=== PATIENT | male | born 1980 | race Two or more races ===

== ENCOUNTER 2018-04-27 02:30 | Inpatient (IN) | payer MEDICAID ==
[2018-04-27] MEDS ORDERED: Sodium Chloride 0.9% 1,000 ML IV ONE (03:00)
--- NOTE | 2018-04-27 03:06 | ED Physician Chart ---
ED Chief Complaint/HPI - Patient Information Date Seen:: 04/27/18 Time Seen:: 02:38 Chief Complaint:: weakness History of Present Illness:: THIS IS A 38 YO MALE BIB HIS FAMILY WITH CHILLS, VOMITING AND DRINKING ALCOHOL. THE PATIENT'S FAMILY IS CONCERNED WITH HIS USING THC AND DRINKING TOO MUCH BEER. Allergies:: Allergies Allergy/AdvReac Type Severity Reaction Status Date / Time No Known Allergies Allergy Verified 04/27/18 02:41 Vitals:: Vital Signs - 8 hr 04/27/18 02:30 Temp 98.5 F HR 89 RR 20 BP 133/96 O2 Sat % 96 Historian:: Patient, Family Member Review:: Nurse's Note Reviewed ED Review of Systems - Review of Systems General/Constitutional: No fever, Chills, No weight loss, Weakness, No diaphoresis, No edema, No loss of appetite Skin: No skin lesions, No rash, No bruising Head: No headache, No light-headedness Eyes: No loss of vision, No pain, No diplopia ENT: No earache, No nasal drainage, No sore throat, No tinnitus Neck: No neck pain, No swelling, No thyromegaly, No stiffness, No mass noted Cardio Vascular: No chest pain, No palpitations, No PND, No orthopnea, No edema Pulmonary: No SOB, No cough, No sputum, No wheezing GI: Nausea, Vomiting, No diarrhea, No pain, No melena, No hematochezia, No constipation, No hematemesis G/U: No dysuria, No frequency, No hematuria Musculoskeletal: No bone or joint pain, No back pain, No muscle pain Endocrine: No polyuria, No polydipsia Psychiatric: No prior psych history, No depression, No anxiety, No suicidal ideation Hematopoietic: No bruising, No lymphadenopathy Allergic/Immuno: No urticaria, No angioedema Neurological: No syncope, No focal symptoms, No weakness, No paresthesia, No headache, No seizure, No dizziness, No confusion, No vertigo ED Past Medical History - Past Medical History Obtainable: Yes Past Medical History: No significant medical hx Family History: None Social History: Smoker, Alcohol, Illicit Drug Use, Employed Surgical History: Hernia Psychiatricy History: None Medication: Reviewed Family Medical History - Family Member Father History Unknown: Yes Ethnicity: Living Status: Still Living ED Physical Exam - Physical Examination General/Constitutional: Awake, Well-developed, well-nourished, Alert, No distress, GCS 15, Non-toxic appearing, Ambulatory Other Gen/Cons comments:: PATIENT IS DIAPHORETIC AND MILDLY WEAK Head: Atraumatic Eyes: Lids, conjuctiva normal, PERRL, EOMI Skin: Nl inspection, No rash, No skin lesions, No ecchymosis, Well hydrated, No lymphadenopathy ENMT: External ears, nose nl, Nasal exam nl, Lips, teeth, gums nl Neck: Nontender, Full ROM w/o pain, No JVD, No nuchal rigidity, No bruit, No mass, No stridor Respiratory: Nl effort/Exclusion, Clear to Auscultation, No Wheeze/Rhonchi/Rales Cardio Vascular: RRR, No murmur, gallop, rubs, NL S1 S2 GI: No tenderness/rebounding/guarding, No organomegaly, No hernia, Normal BS's, Nondistended, No mass/bruits, No McBurney tenderness : No CVA tenderness Extremities: No tenderness or effusion, Full ROM, normal strength in all extremities, No edema, Normal digits & nails Neuro/Psych: Alert/oriented, DTR's symmetric, Normal sensory exam, Normal motor strength, Judgement/insight normal, Mood normal, Normal gait, No focal deficits Misc: Normal back, No paraspinal tenderness ED Labs/Radiology/EKG Results - Lab Results Results: Abnormal Lab Results 04/27/18 04/27/18 04/27/18 03:00 03:00 03:00 WBC 12.8 H RBC 5.72 H Hgb 17.0 Hct 50.5 MCV 88.4 MCH 29.8 MCHC Differential 33.7 RDW 12.6 Plt Count 312 MPV 8.0 Neutrophils % 75.8 Lymphocytes % 19.7 L Monocytes % 3.4 Eosinophils % 0.8 Basophils % 0.3 PT Cancelled INR Cancelled PTT (Actin FS) Cancelled Sodium 139 Potassium 3.3 L Chloride 101 Carbon Dioxide 24.4 Anion Gap 16.9 H BUN 14 Creatinine 0.8 Est GFR ( Amer) > 60.0 Est GFR (Non-Af Amer) > 60.0 BUN/Creatinine Ratio 17.5 Glucose 99 Calcium 10.2 Total Bilirubin 1.8 H AST 58 H ALT 98 H Alkaline Phosphatase 75 Troponin I Total Protein 9.0 H Albumin 5.3 Globulin 3.7 Albumin/Globulin Ratio 1.4 Amylase 46 Lipase 21 TSH Urine Source Urine Color Urine Clarity Urine pH Ur Specific [place] Urine Protein Urine Glucose (UA) Urine Ketones Urine Blood Urine Nitrate Urine Bilirubin Urine Urobilinogen Ur Leukocyte Esterase Urine Opiates Screen Urine Methadone Screen Ur Barbiturates Screen Ur Tricyclics Screen Ur Phencyclidine Scrn Amphetamines Screen U Methamphetamines Scrn U Benzodiazepines Scrn U Cocaine Metab Screen U Cannabinoids Screen Ethyl Alcohol 157 H 04/27/18 04/27/18 04/27/18 03:00 03:00 04:30 WBC RBC Hgb Hct MCV MCH MCHC Differential RDW Plt Count MPV Neutrophils % Lymphocytes % Monocytes % Eosinophils % Basophils % PT INR PTT (Actin FS) Sodium Potassium Chloride Carbon Dioxide Anion Gap BUN Creatinine Est GFR ( Amer) Est GFR (Non-Af Amer) BUN/Creatinine Ratio Glucose Calcium Total Bilirubin AST ALT Alkaline Phosphatase Troponin I 0.01 Total Protein Albumin Globulin Albumin/Globulin Ratio Amylase Lipase TSH 2.13 Urine Source CLEAN C Urine Color YELLOW Urine Clarity CLEAR Urine pH 8.0 Ur Specific [place] 1.020 Urine Protein NEGATIVE Urine Glucose (UA) NEGATIVE Urine Ketones 40 H Urine Blood NEGATIVE Urine Nitrate NEGATIVE Urine Bilirubin NEGATIVE Urine Urobilinogen 0.2 Ur Leukocyte Esterase NEGATIVE Urine Opiates Screen Urine Methadone Screen Ur Barbiturates Screen Ur Tricyclics Screen Ur Phencyclidine Scrn Amphetamines Screen U Methamphetamines Scrn U Benzodiazepines Scrn U Cocaine Metab Screen U Cannabinoids Screen Ethyl Alcohol 04/27/18 04:30 WBC RBC Hgb Hct MCV MCH MCHC Differential RDW Plt Count MPV Neutrophils % Lymphocytes % Monocytes % Eosinophils % Basophils % PT INR PTT (Actin FS) Sodium Potassium Chloride Carbon Dioxide Anion Gap BUN Creatinine Est GFR ( Amer) Est GFR (Non-Af Amer) BUN/Creatinine Ratio Glucose Calcium Total Bilirubin AST ALT Alkaline Phosphatase Troponin I Total Protein Albumin Globulin Albumin/Globulin Ratio Amylase Lipase TSH Urine Source Urine Color Urine Clarity Urine pH Ur Specific [place] Urine Protein Urine Glucose (UA) Urine Ketones Urine Blood Urine Nitrate Urine Bilirubin Urine Urobilinogen Ur Leukocyte Esterase Urine Opiates Screen NEGATIVE Urine Methadone Screen NEGATIVE Ur Barbiturates Screen NEGATIVE Ur Tricyclics Screen NEGATIVE Ur Phencyclidine Scrn NEGATIVE Amphetamines Screen NEGATIVE U Methamphetamines Scrn NEGATIVE U Benzodiazepines Scrn NEGATIVE U Cocaine Metab Screen NEGATIVE U Cannabinoids Screen POSITIVE H Ethyl Alcohol - EKG Interpretations EKG Time:: 03:26 Rate & Rhythm: rate= 59, sinus [place]: right axis Intervals: no ectopy ED Assessment - Assessment General Assessment: VOMITING FROM THC USE ED Septic Shock - . 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 - Patient Disposition Discharge/Transfer:: Home Condition at Disposition:: Improved
[2018-04-27 03:38] LABS: % BASOPHILS 0.3 % (0.0-2.0); % EOSINOPHILS 0.8 % (0.0-5.0); % LYMPHOCYTES 19.7 % (20.0-50.0); % MONOCYTES 3.4 % (2.0-10.0); % NEUTROPHILS 75.8 % (40.0-80.0); EOSINOPHILE ABSOLUTE 0.1 Th/cmm (0.1-0.4); HEMATOCRIT 50.5 % (41.0-60); LYMPHOCYTE ABSOLUTE 2.5 Th/cmm (1.5-3.0); MEAN CELL VOLUME 88.4 fl (80-99); MEAN CORPUSCULAR HEMOGLOBIN 29.8 pg (26.0-30.0); MEAN CORPUSCULAR HGB CONC 33.7 pg (28.0-36.0); MONOCYTE ABSOLUTE 0.4 Th/cmm (0.3-1.0); NEUTROPHILE ABSOLUTE 9.8 Th/cmm (1.8-8.0); PLATELET COUNT 312 Th/cmm (150-400); RED BLOOD COUNT 5.72 Mil/cmm (4.30-5.70); RED CELL DISTRIBUTION WIDTH 12.6 % (11.5-20.0); WHITE BLOOD COUNT 12.8 Th/cmm (4.8-10.8)
[2018-04-27] MEDS ORDERED: Lactated Ringer 1,000 ML IV ONE ×2 (03:42→07:39)
[2018-04-27 03:57] LABS: ALB/GLOB RATIO 1.4 (1.0-1.8); ALBUMIN 5.3 gm/dL (4.2-5.5); ALKALINE PHOSPHATASE 75 U/L (34-104); AMYLASE SERUM 46 U/L (29-103); ANION GAP 16.9 (7.0-16.0); BILIRUBIN,TOTAL 1.8 mg/dL (0.3-1.0); BUN - UREA NITROGEN 14 mg/dL (7-25); CALCIUM SERUM 10.2 mg/dL (8.6-10.3); CARBON DIOXIDE 24.4 mEq/L (21.0-31.0); CHLORIDE 101 mEq/L (98-107); CREATININE - SERUM 0.8 mg/dL (0.7-1.3); GFR AFRICAN-AMERICAN > 60.0 ml/min (>90); GFR NON AFRICAN-AMERICAN > 60.0 ml/min; GLUCOSE 99 mg/dL (70-105); LIPASE 21 U/L (11-82); POTASSIUM SERUM 3.3 mEq/L (3.5-5.1); SGOT 58 U/L (13-39); SODIUM SERUM 139 mEq/L (136-145)
[2018-04-27] MEDS ORDERED: Potassium Chloride Elixir 20 mEq /15 mL UDC PO ONE (04:09)
[2018-04-27] MEDS ORDERED: Potassium Chloride Elixir 20 mEq /15 mL UDC ONE ×2 (04:11→04:12)
[2018-04-27 04:41] LABS: URINE SOURCE CLEAN C
[2018-04-27 04:43] LABS: URINE BILIRUBIN NEGATIVE (NEGATIVE); URINE BLOOD NEGATIVE (NEGATIVE); URINE GLUCOSE (UA) NEGATIVE (NEGATIVE); URINE KETONE 40 mg/dL (NEGATIVE); URINE LEUKOCYTE ESTERASE NEGATIVE (NEGATIVE); URINE NITRATE NEGATIVE (NEGATIVE); URINE PROTEIN NEGATIVE (NEGATIVE); URINE UROBILINOGEN 0.2 E.U./dL (0.2 - 1.0)
[2018-04-27 04:45] LABS: URINE CLARITY CLEAR (CLEAR); URINE COLOR YELLOW; URINE MICROSCOPIC INDICATED? NO
[2018-04-27 04:51] LABS: AMPHETAMINE URINE NEGATIVE (NEGATIVE); BARBITURATES URINE NEGATIVE (NEGATIVE); BENZODIAZEPINES QUAL URINE NEGATIVE (NEGATIVE); CANNABINOID THC POSITIVE (NEGATIVE); COCAINE METABOLITE QUAL URINE NEGATIVE (NEGATIVE); METHADONE URINE NEGATIVE (NEGATIVE); METHAMPHETAMINES QUAL URINE NEGATIVE (NEGATIVE); OPIATES (MORPHINE) QUAL. URINE NEGATIVE (NEGATIVE); PHENCYCLIDINE (PCP) URINE NEGATIVE (NEGATIVE); TRICYCLICS (TCA) QUAL. URINE NEGATIVE (NEGATIVE)
[2018-04-27] MEDS ORDERED: 0.9% NS w/40 mEq KCL 1,000 ML IV ONE ×2 (05:02→05:05)
[2018-04-27 05:43] LABS: SGPT/ALT 98 U/L (7-52)
[2018-04-27] MEDS ORDERED: IOHEXOL 300mgI/mL 100 ML VIAL ONE (06:56)
[2018-04-27] MEDS ORDERED: metroNIDAZOLE 500mg/NS 100mL 500 MG/100 ML BAG IV ONE ×2 (07:41→08:04)
--- NOTE | 2018-04-27 08:30 | Diagnostic Imaging Report ---
Exam: CT examination of the pelvis. HISTORY: Vomiting. Total DLP equals 137 CTDI equals 8.2 Findings: Multiple contiguous thin section of the abdomen pelvis obtained after plane with coronal sagittal reconstruction technique. Examination was performed with administration of intravenous contrast material, no prior studies available comparison. The study demonstrates normal aeration of lung parenchyma the bases The liver and spleen intact there is evidence for hepatomegaly. Adrenal glands are normal. The kidneys concentrate and excrete contrast material normal fashion. The pancreas is intact. The gallbladder demonstrates a small collection of pericholecystic fluid collection this might represent cystitis ultrasound examination of the gallbladder is recommended. The study is degraded by motion artifacts. No free fluid is noted. There is no evidence of diverticular disease of diverticulitis. The urinary bladder is intact. The visualized appendix is normal. Bony structures demonstrate no evidence for lytic or blastic changes. IMPRESSION: Hepatomegaly. Distended gallbladder with a question of pericholecystic fluid collection. Cholecystitis cannot be excluded ultrasound summation gallbladder is recommended.
[2018-04-27] MEDS ORDERED: Piperacillin Sodium/Tazobact 3.375 gm Vial IV ONE (10:05)
--- NOTE | 2018-04-27 10:45 | Diagnostic Imaging Report ---
EXAM: Right shoulder joint HISTORY: Pain COMPARISON: None FINDINGS: Multiple views of right shoulder joint reviewed. The study demonstrates no evidence of fracture or dislocation. There is no evidence of subluxation. The acromion clinically joint is intact. The head of right humerus is well within the glenoid fossa. IMPRESSION: Normal examination of the right shoulder joint.
[2018-04-27] MEDS ORDERED: D5LR 1,000 ML IV ONE (12:52)
[2018-04-27] MEDS ORDERED: Morphine Sulfate 2 mg/mL 1mL Syr IV PRN (14:52)
[2018-04-27] MEDS: D5-0.45NS 1,000 ML IV SCH (15:48)
--- NOTE | 2018-04-27 21:03 | Consultation ---
DATE OF CONSULTATION: 04/27/2018 REASON FOR CONSULTATION: Abdominal pain, nausea, vomiting. HISTORY OF PRESENT ILLNESS: This consult was obtained through the courtesy of Dr. Jackson for this 38-year-old with significant past medical history presenting with abdominal pain, nausea, vomiting that started last night after drinking. The patient came to the hospital with abnormal liver enzymes. The patient was admitted. GI consult was called in for further evaluation. Currently, the patient feels a little bit better. PAST MEDICAL HISTORY: Negative. PAST SURGICAL HISTORY: Hernia repair. SOCIAL HISTORY: He smokes weeds. Drinks beer 6-7. At the time yesterday, he had may be 8 or more. IV drug abuser. FAMILY HISTORY: Noncontributory. ALLERGIES: No known drug allergy. REVIEW OF SYSTEMS: No weight loss. He is weak. He had abdominal pain, nausea, vomiting. No diarrhea or constipation. PHYSICAL EXAMINATION: GENERAL: The patient is awake, oriented to self, place, and time even though sleepy. VITAL SIGNS: Blood pressure is 98/50, heart rate 68, respiratory rate 20, and temperature 99.6. HEAD AND NECK: Pupils reactive to light and accommodation. Extraocular muscles intact. Sclerae are anicteric. Conjunctivae not pale. Oral cavity, no lesion. NECK: Supple. CHEST: Good air entry. LUNGS: Clear to auscultation. CARDIOVASCULAR SYSTEM: Regular rate and rhythm. No murmur or gallop. ABDOMEN: Soft, positive bowel sound. Abdomen is not tender. EXTREMITIES: Lower extremities, no edema. CENTRAL NERVOUS SYSTEM: Nonfocal. LABORATORY DATA: White count 12.8. Rest of CBC unremarkable. Chemistry showed bilirubin of 1.8, AST and ALT are 58 and 98. Ultrasound showed some thickening of the gallbladder wall. IMPRESSION: A 38-year-old with history of alcohol and substance abuse, presenting with abdominal pain, nausea, vomiting, abnormal liver enzymes. ASSESSMENT AND PLAN: Abdominal pain, nausea, vomiting, normal liver enzymes. This picture is consistent with alcoholic gastritis, less likely to be cholecystitis, even though it is considered because of some pericholecystic fluid. RECOMMENDATIONS: 1. Clear liquid diet. 2. PPI. 3. Recheck labs in the morning. 4. If improving continue current management and if not can do an endoscopy. 5. HIDA scan was already ordered, so we will await results. Thank you, Dr. Jackson for allowing me to participate in the care of the patient. If you have any further questions, please let me know. JOB# [id number]
[2018-04-28 06:45] LABS: % EOSINOPHILS 1.5 % (0.0-5.0); % LYMPHOCYTES 41.5 % (20.0-50.0); % MONOCYTES 8.1 % (2.0-10.0); % NEUTROPHILS 48.9 % (40.0-80.0); EOSINOPHILE ABSOLUTE 0.1 Th/cmm (0.1-0.4); HEMATOCRIT 40.8 % (41.0-60); HEMOGLOBIN 13.8 gm/dL (12-16); LYMPHOCYTE ABSOLUTE 2.7 Th/cmm (1.5-3.0); MEAN CELL VOLUME 88.9 fl (80-99); MEAN CORPUSCULAR HEMOGLOBIN 30.1 pg (26.0-30.0); MEAN CORPUSCULAR HGB CONC 33.9 pg (28.0-36.0); MEAN PLATELET VOLUME 7.9 fl; MONOCYTE ABSOLUTE 0.5 Th/cmm (0.3-1.0); NEUTROPHILE ABSOLUTE 3.3 Th/cmm (1.8-8.0); PLATELET COUNT 235 Th/cmm (150-400); RED BLOOD COUNT 4.59 Mil/cmm (4.30-5.70); RED CELL DISTRIBUTION WIDTH 12.7 % (11.5-20.0); WHITE BLOOD COUNT 6.6 Th/cmm (4.8-10.8)
[2018-04-28 07:05] LABS: ALB/GLOB RATIO 1.6 (1.0-1.8); ALBUMIN 3.8 gm/dL (4.2-5.5); ALKALINE PHOSPHATASE 51 U/L (34-104); ANION GAP 10.1 (7.0-16.0); BILIRUBIN,TOTAL 2.3 mg/dL (0.3-1.0); BUN - UREA NITROGEN 13 mg/dL (7-25); CALCIUM SERUM 8.9 mg/dL (8.6-10.3); CARBON DIOXIDE 26.6 mEq/L (21.0-31.0); CHLORIDE 106 mEq/L (98-107); CREATININE - SERUM 0.8 mg/dL (0.7-1.3); GFR AFRICAN-AMERICAN > 60.0 ml/min (>90); GFR NON AFRICAN-AMERICAN > 60.0 ml/min; GLUCOSE 102 mg/dL (70-105); LIPASE 54 U/L (11-82); POTASSIUM SERUM 3.7 mEq/L (3.5-5.1); SGOT 42 U/L (13-39); SGPT/ALT 67 U/L (7-52); SODIUM SERUM 139 mEq/L (136-145); TOTAL PROTEIN,SERUM 6.2 gm/dL (6.0-8.3)
--- NOTE | 2018-04-28 08:29 | History and Physical ---
History of Present Illness - HPI Chief Complaint: abdominal Pain HPI: 38 y/o male who presents to [facility] for abdominal pain, nausea, vomiting. Patient states that he was watching the [employer] fight prior to admission and drank 6 beers and ate a fatty meal. When he woke up the next morning he experience intense abdominal pain, nausea and vomiting. Patient subsequently had a US gallbladder in the ER which revealed fluid around the gallbladder. Patient was subsequently admitted for possible cholecystitis. Initial labwork revealed WBC 12.8 H/H 17.0/50.5 plat 312 Na 139 K 3.3 Bun/Cr 14/0.8 glu 99 ETOH 157 AST 58 ALT 98 ALK 75 UA neg Patient was subsequently admitted for further evaluation and treatment. Vital Signs: Last Vital Signs Temp 98.5 F 04/28/18 04:00 Pulse 72 04/28/18 04:00 Resp 20 04/28/18 04:00 BP 103/67 04/28/18 04:00 Pulse Ox 98 04/28/18 04:00 Past Medical History Cardiovascular: Report: No Pertinent Hx Pulmonary: Report: No Pertinent Hx KAYAKING INSTRUCTOR: Report: No Pertinent Hx GI: Report: No Pertinent Hx Psych: Report: No Pertinent Hx Musculoskeletal: Report: No Pertinent Hx Rheumatologic: Report: No pertinent Hx Infectious Disease: Report: No Pertinent Hx Renal/: Report: No Pertinent Hx Endocrine: Report: No Pertinent Hx Dermatology: Report: No Pertinent Hx - Past Surgical History Past Surgical History: No pertinent Hx Family Medical History - Family Member Father History Unknown: Yes Ethnicity: Living Status: Still Living Social History Smoke: 1 pack per day Alcohol: Social Drugs: Marijuana Lives: With Family Domestic Violence: Negative - Medications Home Medications: Home Medication Medication Instructions Recorded Type NK [No Home Meds] 04/27/18 History - Allergies Allergies/Adverse Reactions: Allergies Allergy/AdvReac Type Severity Reaction Status Date / Time No Known Allergies Allergy Verified 04/27/18 02:41 Review of Systems - Review of Systems Constitutional: Report: No Significant Eyes: Report: No Significant ENT: Report: No Significant, Nose Pain Respiratory: Report: No Significant Cardiovascular: Report: No Significant Gastrointestinal: Report: Nausea, Vomiting, Abdominal Pain Genitourinary: Report: No Significant Musculoskeletal: Report: No Significant Skin: Report: No Significant Neurological: Report: No Significant Physical Exam - Physical Exam HEENT: Report: Ears Nose Throat within normal limits, Pharnyx within normal limits Neck: Report: Within normal limits Cardiovascular Systems: Report: +s1/s2 noted, Regular, Rate and Rhythm Respiratory: Report: Breath Sounds are within normal limits, Clear to Auscultation of lung dejesus Abdomen: Report: Non-tender to palpation Back: Report: Inspection of back is within normal limits. Extremities: Report: Non-tender to palpation. Skin: Report: Color of skin is within normal limits Neuro/Psych: Report: Mood affect is within normal limits, A+Ox3 - Lab Results All Lab Results last 24 hours: Laboratory Results - last 24 hr 04/27/18 04/28/18 04/28/18 07:49 05:25 05:25 WBC 6.6 RBC 4.59 Hgb 13.8 Hct 40.8 L MCV 88.9 MCH 30.1 H MCHC Differential 33.9 RDW 12.7 Plt Count 235 MPV 7.9 Neutrophils % 48.9 Lymphocytes % 41.5 Monocytes % 8.1 Eosinophils % 1.5 Basophils % 0.0 Sodium 139 Potassium 3.7 Chloride 106 Carbon Dioxide 26.6 Anion Gap 10.1 BUN 13 Creatinine 0.8 Est GFR ( Amer) > 60.0 Est GFR (Non-Af Amer) > 60.0 BUN/Creatinine Ratio 16.3 Glucose 102 Calcium 8.9 Total Bilirubin 2.3 H AST 42 H ALT 67 H Alkaline Phosphatase 51 Total Protein 6.2 Albumin 3.8 L Globulin 2.4 Albumin/Globulin Ratio 1.6 Lipase 54 Stool Occult Blood NEGATIVE - Assessment Assessment: cyclic vomiting secondary to THC possible cholecystitis elevated LFTs hypokalemia alcohol intoxication - Plan Plan: Patient was subsequently admitted to med surg for further evaluation and treatment. will ordr general surgical consult GI consult repeat cbc, cmp continue IV fluids
--- NOTE | 2018-04-28 09:09 | General Progress Note ---
Subjective - Review of Systems Service Date: 04/28/18 Events since last encounter: chart reviewed CT noted, US no GB stones HIDA ordered Objective - Results Result Diagrams: 04/28/18 05:25 04/28/18 05:25 Recent Labs: Laboratory Last Values WBC 6.6 Th/cmm (4.8-10.8) 04/28/18 05:25 RBC 4.59 Mil/cmm (4.30-5.70) 04/28/18 05:25 Hgb 13.8 gm/dL (12-16) 04/28/18 05:25 Hct 40.8 % (41.0-60) L 04/28/18 05:25 MCV 88.9 fl (80-99) 04/28/18 05:25 MCH 30.1 pg (26.0-30.0) H 04/28/18 05:25 MCHC Differential 33.9 pg (28.0-36.0) 04/28/18 05:25 RDW 12.7 % (11.5-20.0) 04/28/18 05:25 Plt Count 235 Th/cmm (150-400) 04/28/18 05:25 MPV 7.9 fl 04/28/18 05:25 Neutrophils % 48.9 % (40.0-80.0) 04/28/18 05:25 Lymphocytes % 41.5 % (20.0-50.0) 04/28/18 05:25 Monocytes % 8.1 % (2.0-10.0) 04/28/18 05:25 Eosinophils % 1.5 % (0.0-5.0) 04/28/18 05:25 Basophils % 0.0 % (0.0-2.0) 04/28/18 05:25 PT Cancelled 04/27/18 03:00 INR Cancelled 04/27/18 03:00 PTT (Actin FS) Cancelled 04/27/18 03:00 Sodium 139 mEq/L (136-145) 04/28/18 05:25 Potassium 3.7 mEq/L (3.5-5.1) 04/28/18 05:25 Chloride 106 mEq/L (98-107) 04/28/18 05:25 Carbon Dioxide 26.6 mEq/L (21.0-31.0) 04/28/18 05:25 Anion Gap 10.1 (7.0-16.0) 04/28/18 05:25 BUN 13 mg/dL (7-25) 04/28/18 05:25 Creatinine 0.8 mg/dL (0.7-1.3) 04/28/18 05:25 Est GFR ( Amer) > 60.0 ml/min (>90) 04/28/18 05:25 Est GFR (Non-Af Amer) > 60.0 ml/min 04/28/18 05:25 BUN/Creatinine Ratio 16.3 04/28/18 05:25 Glucose 102 mg/dL (70-105) 04/28/18 05:25 Calcium 8.9 mg/dL (8.6-10.3) 04/28/18 05:25 Total Bilirubin 2.3 mg/dL (0.3-1.0) H 04/28/18 05:25 AST 42 U/L (13-39) H 04/28/18 05:25 ALT 67 U/L (7-52) H 04/28/18 05:25 Alkaline Phosphatase 51 U/L (34-104) 04/28/18 05:25 Troponin I 0.01 ng/mL (0.01-0.05) 04/27/18 03:00 Total Protein 6.2 gm/dL (6.0-8.3) 04/28/18 05:25 Albumin 3.8 gm/dL (4.2-5.5) L 04/28/18 05:25 Globulin 2.4 gm/dL 04/28/18 05:25 Albumin/Globulin Ratio 1.6 (1.0-1.8) 04/28/18 05:25 Amylase 46 U/L (29-103) 04/27/18 03:00 Lipase 54 U/L (11-82) 04/28/18 05:25 TSH 2.13 uIU/ml (0.34-5.60) 04/27/18 03:00 Urine Source CLEAN C 04/27/18 04:30 Urine Color YELLOW 04/27/18 04:30 Urine Clarity CLEAR (CLEAR) 04/27/18 04:30 Urine pH 8.0 (4.6 - 8.0) 04/27/18 04:30 Ur Specific [place] 1.020 (1.005-1.030) 04/27/18 04:30 Urine Protein NEGATIVE mg/dL (NEGATIVE) 04/27/18 04:30 Urine Glucose (UA) NEGATIVE mg/dL (NEGATIVE) 04/27/18 04:30 Urine Ketones 40 mg/dL (NEGATIVE) H 04/27/18 04:30 Urine Blood NEGATIVE (NEGATIVE) 04/27/18 04:30 Urine Nitrate NEGATIVE (NEGATIVE) 04/27/18 04:30 Urine Bilirubin NEGATIVE (NEGATIVE) 04/27/18 04:30 Urine Urobilinogen 0.2 E.U./dL (0.2 - 1.0) 04/27/18 04:30 Ur Leukocyte Esterase NEGATIVE (NEGATIVE) 04/27/18 04:30 Stool Occult Blood NEGATIVE (NEGATIVE) 04/27/18 07:49 Urine Opiates Screen NEGATIVE (NEGATIVE) 04/27/18 04:30 Urine Methadone Screen NEGATIVE (NEGATIVE) 04/27/18 04:30 Ur Barbiturates Screen NEGATIVE (NEGATIVE) 04/27/18 04:30 Ur Tricyclics Screen NEGATIVE (NEGATIVE) 04/27/18 04:30 Ur Phencyclidine Scrn NEGATIVE (NEGATIVE) 04/27/18 04:30 Amphetamines Screen NEGATIVE (NEGATIVE) 04/27/18 04:30 U Methamphetamines Scrn NEGATIVE (NEGATIVE) 04/27/18 04:30 U Benzodiazepines Scrn NEGATIVE (NEGATIVE) 04/27/18 04:30 U Cocaine Metab Screen NEGATIVE (NEGATIVE) 04/27/18 04:30 U Cannabinoids Screen POSITIVE (NEGATIVE) H 04/27/18 04:30 Ethyl Alcohol 157 mg/dL (0-10) H 04/27/18 03:00 - Physical Exam Vitals and I&O: Vital Signs Temp 99.2 F 04/28/18 08:00 Pulse 57 04/28/18 08:00 Resp 18 04/28/18 08:00 BP 106/62 04/28/18 08:00 Pulse Ox 98 04/28/18 08:00 Intake & Output 04/27/18 04/28/18 04/28/18 18:59 06:59 18:59 Intake Total 450 100 Balance 450 100 Weight (lbs) 79.379 kg 79.379 kg Intake: Oral 450 100 Other: # Voids 3 3 # Bowel Movements 0 0 Weight Source Bedscale Bedscale Active Medications: Current Medications Dextrose/Sodium Chloride (D5-0.45ns) 1,000 mls @ 50 mls/hr IV .Q20H WISAM Stop: 06/26/18 14:51 Last Admin: 04/27/18 15:48 Dose: 50 mls/hr Lorazepam (Ativan) 1 mg IVP Q4H PRN; Protocol PRN Reason: Agitation Stop: 06/26/18 14:51 Morphine Sulfate (Morphine) 2 mg IV Q6H PRN PRN Reason: Severe Pain Stop: 06/26/18 14:51 Ondansetron HCl (Zofran) 4 mg IV PRN PRN PRN Reason: Vomiting Stop: 06/26/18 14:51
[2018-04-28 12:12] LABS: HEP A AB IGM Negative (Negative); HEP B CORE IGM Negative (Negative); HEP B SURFACE AG QL Negative (Negative); HEP C ANTIBODY >11.0 s/co ratio (0.0-0.9)
[2018-04-28] MEDS: D5-0.45NS 1,000 ML IV SCH (15:06)
--- NOTE | 2018-04-28 15:58 | GI Progress Note ---
Subjective - Review of Systems Service Date: 04/28/18 Events since last encounter: No events Subjective: Better Objective - Results Result Diagrams: 04/28/18 05:25 04/28/18 05:25 Recent Labs: Laboratory Last Values WBC 6.6 Th/cmm (4.8-10.8) 04/28/18 05:25 RBC 4.59 Mil/cmm (4.30-5.70) 04/28/18 05:25 Hgb 13.8 gm/dL (12-16) 04/28/18 05:25 Hct 40.8 % (41.0-60) L 04/28/18 05:25 MCV 88.9 fl (80-99) 04/28/18 05:25 MCH 30.1 pg (26.0-30.0) H 04/28/18 05:25 MCHC Differential 33.9 pg (28.0-36.0) 04/28/18 05:25 RDW 12.7 % (11.5-20.0) 04/28/18 05:25 Plt Count 235 Th/cmm (150-400) 04/28/18 05:25 MPV 7.9 fl 04/28/18 05:25 Neutrophils % 48.9 % (40.0-80.0) 04/28/18 05:25 Lymphocytes % 41.5 % (20.0-50.0) 04/28/18 05:25 Monocytes % 8.1 % (2.0-10.0) 04/28/18 05:25 Eosinophils % 1.5 % (0.0-5.0) 04/28/18 05:25 Basophils % 0.0 % (0.0-2.0) 04/28/18 05:25 PT Cancelled 04/27/18 03:00 INR Cancelled 04/27/18 03:00 PTT (Actin FS) Cancelled 04/27/18 03:00 Sodium 139 mEq/L (136-145) 04/28/18 05:25 Potassium 3.7 mEq/L (3.5-5.1) 04/28/18 05:25 Chloride 106 mEq/L (98-107) 04/28/18 05:25 Carbon Dioxide 26.6 mEq/L (21.0-31.0) 04/28/18 05:25 Anion Gap 10.1 (7.0-16.0) 04/28/18 05:25 BUN 13 mg/dL (7-25) 04/28/18 05:25 Creatinine 0.8 mg/dL (0.7-1.3) 04/28/18 05:25 Est GFR ( Amer) > 60.0 ml/min (>90) 04/28/18 05:25 Est GFR (Non-Af Amer) > 60.0 ml/min 04/28/18 05:25 BUN/Creatinine Ratio 16.3 04/28/18 05:25 Glucose 102 mg/dL (70-105) 04/28/18 05:25 Calcium 8.9 mg/dL (8.6-10.3) 04/28/18 05:25 Total Bilirubin 2.3 mg/dL (0.3-1.0) H 04/28/18 05:25 AST 42 U/L (13-39) H 04/28/18 05:25 ALT 67 U/L (7-52) H 04/28/18 05:25 Alkaline Phosphatase 51 U/L (34-104) 04/28/18 05:25 Troponin I 0.01 ng/mL (0.01-0.05) 04/27/18 03:00 Total Protein 6.2 gm/dL (6.0-8.3) 04/28/18 05:25 Albumin 3.8 gm/dL (4.2-5.5) L 04/28/18 05:25 Globulin 2.4 gm/dL 04/28/18 05:25 Albumin/Globulin Ratio 1.6 (1.0-1.8) 04/28/18 05:25 Amylase 46 U/L (29-103) 04/27/18 03:00 Lipase 54 U/L (11-82) 04/28/18 05:25 TSH 2.13 uIU/ml (0.34-5.60) 04/27/18 03:00 Urine Source CLEAN C 04/27/18 04:30 Urine Color YELLOW 04/27/18 04:30 Urine Clarity CLEAR (CLEAR) 04/27/18 04:30 Urine pH 8.0 (4.6 - 8.0) 04/27/18 04:30 Ur Specific [place] 1.020 (1.005-1.030) 04/27/18 04:30 Urine Protein NEGATIVE mg/dL (NEGATIVE) 04/27/18 04:30 Urine Glucose (UA) NEGATIVE mg/dL (NEGATIVE) 04/27/18 04:30 Urine Ketones 40 mg/dL (NEGATIVE) H 04/27/18 04:30 Urine Blood NEGATIVE (NEGATIVE) 04/27/18 04:30 Urine Nitrate NEGATIVE (NEGATIVE) 04/27/18 04:30 Urine Bilirubin NEGATIVE (NEGATIVE) 04/27/18 04:30 Urine Urobilinogen 0.2 E.U./dL (0.2 - 1.0) 04/27/18 04:30 Ur Leukocyte Esterase NEGATIVE (NEGATIVE) 04/27/18 04:30 Stool Occult Blood NEGATIVE (NEGATIVE) 04/27/18 07:49 Urine Opiates Screen NEGATIVE (NEGATIVE) 04/27/18 04:30 Urine Methadone Screen NEGATIVE (NEGATIVE) 04/27/18 04:30 Ur Barbiturates Screen NEGATIVE (NEGATIVE) 04/27/18 04:30 Ur Tricyclics Screen NEGATIVE (NEGATIVE) 04/27/18 04:30 Ur Phencyclidine Scrn NEGATIVE (NEGATIVE) 04/27/18 04:30 Amphetamines Screen NEGATIVE (NEGATIVE) 04/27/18 04:30 U Methamphetamines Scrn NEGATIVE (NEGATIVE) 04/27/18 04:30 U Benzodiazepines Scrn NEGATIVE (NEGATIVE) 04/27/18 04:30 U Cocaine Metab Screen NEGATIVE (NEGATIVE) 04/27/18 04:30 U Cannabinoids Screen POSITIVE (NEGATIVE) H 04/27/18 04:30 Ethyl Alcohol 157 mg/dL (0-10) H 04/27/18 03:00 Hepatitis A IgM Ab Negative (Negative) 04/27/18 11:05 Hep Bs Antigen Negative (Negative) 04/27/18 11:05 Hep B Core IgM Ab Negative (Negative) 04/27/18 11:05 Hepatitis C Antibody >11.0 s/co ratio (0.0-0.9) H 04/27/18 11:05 - Physical Exam Vitals and I&O: Vital Signs Temp 98.7 F 04/28/18 14:58 Pulse 71 04/28/18 14:58 Resp 18 04/28/18 14:58 BP 109/71 04/28/18 14:58 Pulse Ox 95 04/28/18 14:58 Intake & Output 04/27/18 04/28/18 04/28/18 18:59 06:59 18:59 Intake Total 450 1100 Balance 450 1100 Weight (lbs) 79.379 kg 79.379 kg Intake: Intake, IV Amount 1000 D5-0.45NS 1,000 ml @ 50 1000 mls/hr IV .Q20H [facility] Rx#: [id number] Oral 450 100 Other: # Voids 3 3 # Bowel Movements 0 0 Weight Source Bedscale Bedscale Active Medications: Current Medications Dextrose/Sodium Chloride (D5-0.45ns) 1,000 mls @ 50 mls/hr IV .Q20H [facility] Stop: 06/26/18 14:51 Last Admin: 04/28/18 15:06 Dose: 50 mls/hr Lorazepam (Ativan) 1 mg IVP Q4H PRN; Protocol PRN Reason: Agitation Stop: 06/26/18 14:51 Morphine Sulfate (Morphine) 2 mg IV Q6H PRN PRN Reason: Severe Pain Stop: 06/26/18 14:51 Ondansetron HCl (Zofran) 4 mg IV PRN PRN PRN Reason: Vomiting Stop: 06/26/18 14:51 General: Alert Neck: Supple Cardiovascular: Regular rate, Normal S1, Normal S2 Lungs: Clear to auscultation Abdomen: Bowel sounds, Soft, no Tender, no Hepatomegaly, no Splenomegaly, no Distended, no Rebound, no Mass, no Guarding, no Drain, no Obese, no Catheter, no Other Assessment/Plan - Assessment Assessment: Abnormal LFTs Abdominal pain - Plan Plan: 1.Abnormal LFTs Secondary to ETOH and substance abuse Advised to stop 2.Abdominal pain Most likely alcoholic gastritis Better
--- NOTE | 2018-04-29 08:52 | General Progress Note ---
Subjective - Review of Systems Service Date: 04/29/18 Subjective: Patient was seen and examined. Patient has had no further nausea and vomiting. tolerating regular diet. HIDA scan still pending. Patient clinically stable. Patient has had no further episodes. Wants to go home. Objective - Results Result Diagrams: 04/28/18 05:25 04/28/18 05:25 Recent Labs: Laboratory Last Values WBC 6.6 Th/cmm (4.8-10.8) 04/28/18 05:25 RBC 4.59 Mil/cmm (4.30-5.70) 04/28/18 05:25 Hgb 13.8 gm/dL (12-16) 04/28/18 05:25 Hct 40.8 % (41.0-60) L 04/28/18 05:25 MCV 88.9 fl (80-99) 04/28/18 05:25 MCH 30.1 pg (26.0-30.0) H 04/28/18 05:25 MCHC Differential 33.9 pg (28.0-36.0) 04/28/18 05:25 RDW 12.7 % (11.5-20.0) 04/28/18 05:25 Plt Count 235 Th/cmm (150-400) 04/28/18 05:25 MPV 7.9 fl 04/28/18 05:25 Neutrophils % 48.9 % (40.0-80.0) 04/28/18 05:25 Lymphocytes % 41.5 % (20.0-50.0) 04/28/18 05:25 Monocytes % 8.1 % (2.0-10.0) 04/28/18 05:25 Eosinophils % 1.5 % (0.0-5.0) 04/28/18 05:25 Basophils % 0.0 % (0.0-2.0) 04/28/18 05:25 PT Cancelled 04/27/18 03:00 INR Cancelled 04/27/18 03:00 PTT (Actin FS) Cancelled 04/27/18 03:00 Sodium 139 mEq/L (136-145) 04/28/18 05:25 Potassium 3.7 mEq/L (3.5-5.1) 04/28/18 05:25 Chloride 106 mEq/L (98-107) 04/28/18 05:25 Carbon Dioxide 26.6 mEq/L (21.0-31.0) 04/28/18 05:25 Anion Gap 10.1 (7.0-16.0) 04/28/18 05:25 BUN 13 mg/dL (7-25) 04/28/18 05:25 Creatinine 0.8 mg/dL (0.7-1.3) 04/28/18 05:25 Est GFR ( Amer) > 60.0 ml/min (>90) 04/28/18 05:25 Est GFR (Non-Af Amer) > 60.0 ml/min 04/28/18 05:25 BUN/Creatinine Ratio 16.3 04/28/18 05:25 Glucose 102 mg/dL (70-105) 04/28/18 05:25 Calcium 8.9 mg/dL (8.6-10.3) 04/28/18 05:25 Total Bilirubin 2.3 mg/dL (0.3-1.0) H 04/28/18 05:25 AST 42 U/L (13-39) H 04/28/18 05:25 ALT 67 U/L (7-52) H 04/28/18 05:25 Alkaline Phosphatase 51 U/L (34-104) 04/28/18 05:25 Troponin I 0.01 ng/mL (0.01-0.05) 04/27/18 03:00 Total Protein 6.2 gm/dL (6.0-8.3) 04/28/18 05:25 Albumin 3.8 gm/dL (4.2-5.5) L 04/28/18 05:25 Globulin 2.4 gm/dL 04/28/18 05:25 Albumin/Globulin Ratio 1.6 (1.0-1.8) 04/28/18 05:25 Amylase 46 U/L (29-103) 04/27/18 03:00 Lipase 54 U/L (11-82) 04/28/18 05:25 TSH 2.13 uIU/ml (0.34-5.60) 04/27/18 03:00 Urine Source CLEAN C 04/27/18 04:30 Urine Color YELLOW 04/27/18 04:30 Urine Clarity CLEAR (CLEAR) 04/27/18 04:30 Urine pH 8.0 (4.6 - 8.0) 04/27/18 04:30 Ur Specific [place] 1.020 (1.005-1.030) 04/27/18 04:30 Urine Protein NEGATIVE mg/dL (NEGATIVE) 04/27/18 04:30 Urine Glucose (UA) NEGATIVE mg/dL (NEGATIVE) 04/27/18 04:30 Urine Ketones 40 mg/dL (NEGATIVE) H 04/27/18 04:30 Urine Blood NEGATIVE (NEGATIVE) 04/27/18 04:30 Urine Nitrate NEGATIVE (NEGATIVE) 04/27/18 04:30 Urine Bilirubin NEGATIVE (NEGATIVE) 04/27/18 04:30 Urine Urobilinogen 0.2 E.U./dL (0.2 - 1.0) 04/27/18 04:30 Ur Leukocyte Esterase NEGATIVE (NEGATIVE) 04/27/18 04:30 Stool Occult Blood NEGATIVE (NEGATIVE) 04/27/18 07:49 Urine Opiates Screen NEGATIVE (NEGATIVE) 04/27/18 04:30 Urine Methadone Screen NEGATIVE (NEGATIVE) 04/27/18 04:30 Ur Barbiturates Screen NEGATIVE (NEGATIVE) 04/27/18 04:30 Ur Tricyclics Screen NEGATIVE (NEGATIVE) 04/27/18 04:30 Ur Phencyclidine Scrn NEGATIVE (NEGATIVE) 04/27/18 04:30 Amphetamines Screen NEGATIVE (NEGATIVE) 04/27/18 04:30 U Methamphetamines Scrn NEGATIVE (NEGATIVE) 04/27/18 04:30 U Benzodiazepines Scrn NEGATIVE (NEGATIVE) 04/27/18 04:30 U Cocaine Metab Screen NEGATIVE (NEGATIVE) 04/27/18 04:30 U Cannabinoids Screen POSITIVE (NEGATIVE) H 04/27/18 04:30 Ethyl Alcohol 157 mg/dL (0-10) H 04/27/18 03:00 Hepatitis A IgM Ab Negative (Negative) 04/27/18 11:05 Hep Bs Antigen Negative (Negative) 04/27/18 11:05 Hep B Core IgM Ab Negative (Negative) 04/27/18 11:05 Hepatitis C Antibody >11.0 s/co ratio (0.0-0.9) H 04/27/18 11:05 - Physical Exam Vitals and I&O: Vital Signs Temp 98.2 F 04/29/18 08:00 Pulse 51 04/29/18 08:00 Resp 18 04/29/18 08:00 BP 105/66 04/29/18 08:00 Pulse Ox 100 04/29/18 08:00 Intake & Output 04/28/18 04/29/18 04/29/18 18:59 06:59 18:59 Intake Total 1100 100 Balance 1100 100 Weight (lbs) 79.379 kg 79.379 kg Intake: Intake, IV Amount 1000 D5-0.45NS 1,000 ml @ 50 1000 mls/hr IV .Q20H [facility] Rx#: [id number] Oral 100 100 Other: # Voids 3 3 # Bowel Movements 0 0 Weight Source Bedscale Bedscale Active Medications: Current Medications Dextrose/Sodium Chloride (D5-0.45ns) 1,000 mls @ 50 mls/hr IV .Q20H [facility] Stop: 06/26/18 14:51 Last Admin: 04/28/18 15:06 Dose: 50 mls/hr Lorazepam (Ativan) 1 mg IVP Q4H PRN; Protocol PRN Reason: Agitation Stop: 06/26/18 14:51 Morphine Sulfate (Morphine) 2 mg IV Q6H PRN PRN Reason: Severe Pain Stop: 06/26/18 14:51 Ondansetron HCl (Zofran) 4 mg IV PRN PRN PRN Reason: Vomiting Stop: 06/26/18 14:51 General: Alert, Oriented x3 Neck: Supple Cardiovascular: Regular rate, Normal S1, Normal S2 Lungs: Clear to auscultation Abdomen: Bowel sounds, Soft, no Tender, no Hepatomegaly, no Splenomegaly, no Distended, no Rebound, no Mass, no Guarding, no Drain, no Obese, no Catheter, no Other Assessment/Plan - Assessment Assessment: cyclic vomiting secondary to THC possible cholecystitis elevated LFTs now improved. hypokalemia improved. alcohol intoxication resolved. GERD +UDS THC - Plan Plan: will discharge patient home today. f/u with regular physician in 3-5 days. Patient advised to refrain from excessive alcohol use and other activities
--- NOTE | 2018-04-29 10:45 | Diagnostic Imaging Report ---
Radionuclide biliary scan (HIDA scan) HISTORY: Pain 5.3 mCi technetium labeled nuclides used in the exam. There is normal hepatic uptake and clearance. Sequential images demonstrate normal excretion of nuclide into the gallbladder. Slight delay in excretion into the small bowel. Significance should be correlated clinically. IMPRESSION: 1. Normal visualization of the gallbladder 2. Slight delay in transit of nuclide into the small bowel. Significance should be correlated clinically
--- NOTE | 2018-04-29 12:04 | Consultation ---
DATE OF CONSULTATION: 04/28/2018 SURGICAL CONSULTATION REFERRING PHYSICIAN: Dr. Jackson. REASON FOR CONSULTATION: Abdominal pain. Thank you for referring this patient to me. HISTORY OF PRESENT ILLNESS: This 38-year-old male who came in because of abdominal pain, nausea and vomiting. He admitted to having drank 6 beers and a fatty meal. On admission, the alcohol level of 157. There was some elevation of the AST, ALT and ALK. The WBC was 12,800. Bilirubin was also elevated to 1.8 and went up to 2.3. He is known about hepatitis C since he was a child. The patient underwent CT scan of the abdomen, which showed no evidence of diverticular disease. There was some pericholecystic fluid was seen. The ultrasound; however, was negative for gallstones. He underwent HIDA scan, which apparently was negative as he was informed this morning. The physical examination is negative. The patient wants to go home. If pain recurs, he would likely needs to go to [facility]. [facility]# [id number]
== END 2018-04-29 10:20 | disposition home or self-care (01) | DRG 812 ==
LOC: ER 02:30 → MSI 13:13
PROVIDERS: ADMIT Family Medicine; ATTEND Family Medicine
DX: T40.7X1A Poisoning by cannabis (derivatives), accidental (unintentional), initial encounter (principal); K81.9 Cholecystitis, unspecified; E87.6 Hypokalemia; F10.129 Alcohol abuse with intoxication, unspecified; Y90.6 Blood alcohol level of 120-199 mg/100 ml; F12.90 Cannabis use, unspecified, uncomplicated; F17.210 Nicotine dependence, cigarettes, uncomplicated; K31.89 Other diseases of stomach and duodenum; R11.2 Nausea with vomiting, unspecified; K21.9 Gastro-esophageal reflux disease without esophagitis; Y92.89 Other specified places as the place of occurrence of the external cause
CPT/HCPCS: 36415-UA; 76705-TC; 78226-TC; 80053-TC; 80074-90; 80307; 80320-TC; 81003-TC; 82150-TC; 82270-TC; 83690-TC; 84443-TC; 84484-TC; 85025-TC; 90799; 93005; 96375; 96376; A9537; J0696; J1885; J2060; J2405; J2543; J3480; J7030; Q9967